=== PATIENT | male | born 1980 | race Caucasian/White ===

== ENCOUNTER 2018-10-10 08:13 | Emergency (ER) | payer OTHER ==
[2018-10-10] MEDS ORDERED: HYDROcodone/ACETAMIN 5-325 MG* 1 TAB PO ONE (08:32)
[2018-10-10 09:49] VITALS: BP 132/83
--- NOTE | 2018-10-10 10:54 | ED ---
Upper Extremity Pain - HPI Summary HPI Summary: Patient is a 38-year-old male who presents emergency department for left hand injury that occurred just prior to arrival. Patient states he jumped off of a tractor today when his left hand got caught and was twisted. No other injuries were sustained. Movement makes symptoms worse. Nothing makes symptoms better. Patient denies numbness or tingling. - History of Current Complaint Chief Complaint: EDExtremityUpper Stated Complaint: "LEFT HAND INJURY PER PT" Time Seen by Provider: 10/10/18 08:23 Hx Obtained From: Patient - Allergies/Home Medications Allergies/Adverse Reactions: Allergies Allergy/AdvReac Type Severity Reaction Status Date / Time No Known Allergies Allergy Verified 10/10/18 08:18 PMH/Surg Hx/FS Hx/Imm Hx Previously Healthy: Yes Endocrine/Hematology History: Denies: Hx Diabetes Cardiovascular History: Denies: Hx Hypertension, Hx Pacemaker/ICD Respiratory History: Reports: Hx Asthma - ALLERGY INDUCED History: Denies: Hx Renal Disease Sensory History: Denies: Hx Hearing Aid Psychiatric History: Denies: Hx Panic Disorder - Surgical History Surgery Procedure, Year, and Place: LEFT SHOULDER SURGERY (LABRUM) X 2;. BACK SURGERY FOR DISCS X2 (2009 & 2003); Infectious Disease History: No Infectious Disease History: Denies: Traveled Outside the [place] in Last 30 Days - Family History Known Family History: Positive: Non-Contributory Family History: FHx of Colon [place] - Social History Occupation: Employed Full-time Lives: With Family Alcohol Use: Occasionally Substance Use Type: Reports: None Smoking Status (MU): Former Smoker Review of Systems Positive: Other - left hand pain and swelling Neurological: Negative Negative: Weakness, Paresthesia, Numbness All Other Systems Reviewed And Are Negative: Yes Physical Exam Triage Information Reviewed: Yes Vital Signs On Initial Exam: Initial Vitals Temp Pulse Resp BP Pulse Ox 96.6 F 59 18 139/88 98 10/10/18 08:14 10/10/18 08:14 10/10/18 08:14 10/10/18 08:14 10/10/18 08:14 Vital Signs Reviewed: Yes Appearance: Positive: Pain Distress - Pt. sitting on bed hold left arm. Appears in pain but nontoxic. Mother present. Skin: Positive: Warm, Dry Head/Face: Positive: Normal Head/Face Inspection Eyes: Positive: Normal, EOMI Musculoskeletal: Positive: Other - Pain and swelling to left lateral hand. Good radial pulse. Pain with movement of digits. Diffuse wrist pain as well. Small superficial abrasion to 2nd digit, otherwise of breaks in skin to hand. Neurological: Positive: Normal, CN Intact II-III Psychiatric: Positive: Affect/Mood Appropriate Procedures - Splinting Left Upper Extremity Location: applied by myself Hand-Made Type: orthoglass Splint: ulnar Pre-Proc Neuro Vasc Exam: normal Post-Proc Neuro Vasc Exam: normal Diagnostics - Vital Signs Vital Signs Temp Pulse Resp BP Pulse Ox 10/10/18 09:47 97.5 F 56 18 132/83 96 10/10/18 08:14 96.6 F 59 18 139/88 98 - Laboratory Lab Statement: Any lab studies that have been ordered have been reviewed, and results considered in the medical decision making process. Course/Dx - Course Course Of Treatment: Patient presenting with isolated left hand injury. He was given some Lortab for pain. X-ray shows a nondisplaced fracture of the fourth metacarpal. Patient was placed in an ulnar gutter splint. We'll have him follow up with orthopedics on Friday. Small prescription for Lortab given, BMP reviewed and no red flags noted. Advised to ice and elevate intermittently. Return to the ER over the weekend for extreme pain, extremity swelling, numbness or tingling or discoloration. Patient understands and agrees with plan. - Diagnoses Differential Diagnosis/HQI/PQRI: Positive: Contusion, Fracture (Closed), Hematoma, Strain, Sprain Provider Diagnoses: Metacarpal bone fracture Discharge - Sign-Out/Discharge Documenting (check all that apply): Patient Departure Patient Received Moderate/Deep Sedation with Procedure: No - Discharge Plan Condition: Improved Disposition: HOME Prescriptions: Hydrocodone/Acetaminophen [Hydrocodone-Acetamin 5-325 mg] 1 each PO Q6H #12 tablet MDD 4 Patient Education Materials: Hand Fracture (ED) Referrals: Flavio Sena MD [Medical Doctor] - Additional Instructions: Call the orthopedic clinic Friday to schedule an appointment as soon as possible Keep splint in place Ice and elevate intermittently Pain medication as directed Return to ER for increased pain, tingling/numbness, skin discoloration or if concerned - Billing Disposition and Condition Condition: IMPROVED Disposition: Home
== END 2018-10-10 09:49 | disposition home or self-care (01) ==
LOC: ED 08:13
DX: S62.395A Other fracture of fourth metacarpal bone, left hand, initial encounter for closed fracture (principal); Y93.39 Activity, other involving climbing, rappelling and jumping off; Y92.9 Unspecified place or not applicable; Z87.891 Personal history of nicotine dependence
CPT/HCPCS: 99282

== ENCOUNTER 2019-01-04 09:57 | Inpatient (IN) | payer OTHER ==
--- NOTE | 2019-01-04 10:21 | ED ---
Back Pain - HPI Summary HPI Summary: This patient is a 38 year old M presenting to [facility] with a chief complaint of severe back pain since 2 days ago. Pt has hx of back surgeries. The patient rates the pain 10/10 in severity. Symptoms aggravated by movement. Symptoms alleviated by rest. Patient reports tingling and leg pain. Patient denies any fever, chills, erythema of eyes, sore throat, CP, SOB, cough, abdominal pain, N/ V, dysuria, hematuria, myalgia, edema, rash, or dizziness. - History of Current Complaint Chief Complaint: EDBackInjuryPain Stated Complaint: BACK INJURY PER PT Time Seen by Provider: 01/04/19 10:14 Hx Obtained From: Patient, Family/Mule Spinner - mother Onset/Duration: Sudden Onset, Lasting Days - 2, Still Present Onset/Duration: Started Days Ago - 2 Timing: Constant Severity Initially: Severe Severity Currently: Severe Pain Intensity: 10 Pain Scale Used: 0-10 Numeric Aggravating Symptom(s): Movement Alleviating Symptom(s): Rest Associated Signs And Symptoms: Positive: Tingling, Other - positive - back pain , leg pain. negative - any chills, erythema of eyes, sore throat, CP, SOB, cough , N/V, dysuria, hematuria, myalgia, edema, rash, or dizziness.. Negative: Fever, Abdominal Pain - Allergies/Home Medications Allergies/Adverse Reactions: Allergies Allergy/AdvReac Type Severity Reaction Status Date / Time No Known Allergies Allergy Verified 01/04/19 10:12 PMH/Surg Hx/FS Hx/Imm Hx Previously Healthy: No Endocrine/Hematology History: Denies: Hx Diabetes Cardiovascular History: Denies: Hx Hypertension, Hx Pacemaker/ICD Respiratory History: Reports: Hx Asthma - ALLERGY INDUCED History: Denies: Hx Renal Disease Sensory History: Denies: Hx Hearing Aid Psychiatric History: Denies: Hx Panic Disorder - Surgical History Surgical History: Yes Surgery Procedure, Year, and Place: LEFT SHOULDER SURGERY (LABRUM) X 2;. BACK SURGERY FOR DISCS X2 (2009 & 2003); Infectious Disease History: No Infectious Disease History: Denies: Traveled Outside the [place] in Last 30 Days - Family History Known Family History: Positive: Non-Contributory Family History: FHx of Colon [place] - Social History Alcohol Use: Occasionally Substance Use Type: Reports: None Smoking Status (MU): Former Smoker Review of Systems Negative: Fever, Chills Negative: Erythema Negative: Sore Throat Negative: Chest Pain Negative: Shortness Of Breath, Cough Negative: Abdominal Pain, Vomiting, Nausea Negative: dysuria, hematuria Musculoskeletal: Other - positive - back pain, tingling and leg pain Negative: Myalgia, Edema Negative: Rash Neurological: Other - negative - dizziness All Other Systems Reviewed And Are Negative: Yes Physical Exam - Summary Physical Exam Summary: Constitutional: Well-developed, Well-nourished, Alert. (-) Distressed. Uncomfortable. Skin: Warm, Dry HENT: Normocephalic; Atraumatic Eyes: Conjunctiva normal Neck: Musculoskeletal ROM normal neck. (-) JVD, (-) Stridor, (-) Tracheal deviation Cardio: Rhythm regular, rate normal, Heart sounds normal; Intact distal pulses; The pedal pulses are 2+ and symmetric. Radial pulses are 2+ and symmetric. (-) Murmur Pulmonary/Chest wall: Effort normal. (-) Respiratory distress, (-) Wheezes, (-) Rales Abd: Soft, (-) tenderness, (-) Distension, (-) Guarding, (-) Rebound Musculoskeletal: (-) Edema. Positive crossed left leg raise, keeps right leg with hip and knee flexed Lymph: (-) Cervical adenopathy Neuro: Alert, Oriented x3 Psych: Mood and affect Normal Triage Information Reviewed: Yes Vital Signs On Initial Exam: Initial Vitals Temp Pulse Resp BP Pulse Ox 97.9 F 78 20 148/80 99 01/04/19 09:58 01/04/19 09:58 01/04/19 09:58 01/04/19 09:58 01/04/19 09:58 Vital Signs Reviewed: Yes Procedures - Sedation Patient Received Moderate/Deep Sedation with Procedure: No Diagnostics - Vital Signs Vital Signs Temp Pulse Resp BP Pulse Ox 01/04/19 09:58 97.9 F 78 20 148/80 99 - Laboratory Result Diagrams: 01/04/19 17:08 01/04/19 17:08 Lab Statement: Any lab studies that have been ordered have been reviewed, and results considered in the medical decision making process. Back Pain Course/Dx - Course Course Of Treatment: This patient is a 38 year old M presenting to [facility] with a chief complaint of severe back pain since 2 days ago. Pt has hx of back surgeries. The patient rates the pain 10/10 in severity. Symptoms aggravated by movement. Symptoms alleviated by rest. Patient reports tingling and leg pain. Patient denies any fever, chills, erythema of eyes, sore throat, CP, SOB, cough , abdominal pain, N/V, dysuria, hematuria, myalgia, edema, rash, or dizziness. Physical exam shows pt appears uncomfortable, has positive crossed left leg raise, keeps right leg with hip and knee flexed. During ED course, pt was given Morphine, Naprosyn, Deltasone, Percocet. At 1520, Dr. Chan agrees to admit pt. Dx is sciatica. - Diagnoses Provider Diagnoses: Sciatica - Provider Notifications Discussed Care Of Patient With: Rachel Chan Time Discussed With Above Provider: 15:20 Instructed by Provider To: Other - Dr. Chan agrees to admit pt. Discharge ED - Sign-Out/Discharge Documenting (check all that apply): Patient Departure - admit - Discharge Plan Condition: Stable Disposition: ADMITTED TO [facility] - Billing Disposition and Condition Condition: STABLE Disposition: Admitted to [facility] - Attestation Statements Document Initiated by Scribe: Yes Documenting Scribe: Jann Ivy Provider For Whom Lannyibe is Documenting (Include Credential): Dr. Devan Arrieta MD Scribe Attestation: Jann Adams scribed for Dr. Devan Arrieta MD on 01/12/19 at 2205. Scribe Documentation Reviewed: Yes Provider Attestation: The documentation as recorded by the Jann sevilla accurately reflects the service I personally performed and the decisions made by me, Dr. Devan Arrieta MD Status of Scribe Document: Viewed
[2019-01-04] MEDS ORDERED: Morphine 10 MG/ML VIAL (1 ml) IM ONE (10:40)
[2019-01-04] MEDS ORDERED: predniSONE TAB* 20 MG PO ONE (11:21)
[2019-01-04] MEDS ORDERED: Naproxen TAB* 250 MG PO ONE (11:21)
[2019-01-04] MEDS ORDERED: oxyCODONE/Acetamin 5/325 MG* TAB PO ONE (13:06)
[2019-01-04] MEDS ORDERED: Morphine 4 MG/ML VIAL (1 ml) 4 MG/ML VIAL IV ONE (14:40)
[2019-01-04] MEDS ORDERED: Cyclobenzaprine TAB* 10 MG PO ONE (16:42)
[2019-01-04] MEDS ORDERED: HYDROmorphone INJ* 0.5 MG/0.5 ML SYRINGE IV ONE (16:51)
[2019-01-04 17:28] LABS: ABS Basophils 0.1 10^3/ul (0-0.2); ABS Lymphocytes 1.1 10^3/ul (1.0-4.8); ABS Monocytes 0.1 10^3/ul (0-0.8); ABS Neutrophils 8.3 10^3/ul (1.5-7.7); Eosinophil % 0.2 %; Hematocrit 47 % (42-52); Hemoglobin 15.7 g/dL (14.0-18.0); Lymphocyte % 11.1 %; Mean Corpuscular HGB Conc 34 g/dL (31-36); Mean Corpuscular Hemoglobin 31 pg (27-31); Mean Corpuscular Volume 90 fL (80-94); Mean Platelet Volume 8.9 fL (7.4-10.4); Nucleated Red Blood Cells % 0.1; Platelet Count 217 10^3/uL (150-450); Red Blood Count 5.17 10^6 /uL (4.18-5.48); Red Cell Distribution Width 13 % (10-15); White Blood Count 9.6 10^3/uL (3.5-10.8)
[2019-01-04 18:02] LABS: BUN/Creatinine Ratio 28.9 (8-20); C Reactive Protein 1.41 mg/L (<8.01); Calcium 9.6 mg/dL (8.6-10.3); EGFR African American 125.5 (>60); EGFR Non-African American 103.7 (>60); Potassium 4.3 mmol/L (3.5-5.0)
[2019-01-04] MEDS ORDERED: Iohexol 300* (CONTRAST) 10 ML SDV IV ONE (18:35)
[2019-01-04] MEDS ORDERED: Acetaminophen TAB* 325 MG PO PRN (18:40)
[2019-01-04] MEDS ORDERED: HYDROmorphone INJ1* 1 MG/ML SYRINGE IV PRN (18:43)
--- NOTE | 2019-01-04 20:39 | HP ---
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 Jolley.* (DICTATED BY CRISTIAN ROBLEDO NP) CHIEF COMPLAINT: Back pain radiating down the right leg. HISTORY OF PRESENT ILLNESS: This is a 38-year-old male with a past medical history that is significant for back surgery x2 due to herniated disks, who 2 days ago had went to swing his legs out of bed, felt a pop in his back and then developed severe back pain with radiating numbness and tingling down the right leg. Since then, he has been having difficulty with urination, having to force to have the urine come out, has not had a bowel movement since injury. He has difficulty walking or going up and down stairs without severe pain and needing assistance. Unable to lay in the same spot for more than a few minutes at a time without severe pain. Elevating right leg on pillows alleviates pain somewhat. Has tried ice and heat without relief from either. Here in the emergency room, the patient has received a total of 14 mg of morphine, 500 of naproxen, 2 Percocet, 60 mg of prednisone, 10 mg of cyclobenzaprine and 0.5 mg of IV Dilaudid. The patient is able to lift the right leg off the bed, but elicited pain to the lower back at a low angle to bed. Hospitalist asked to evaluate patient for admission. PAST MEDICAL HISTORY: Includes herniated disks in the lumbar area, broken back , pelvis and left hand fracture. PAST SURGICAL HISTORY: Includes 2 left shoulder surgeries, unspecified, the patient is unable to say what type of surgery. The patient also has had 2 back surgeries, unable to state specific type of surgery. MEDICATIONS: He is on no home medications. ALLERGIES: No known drug allergies. FAMILY HISTORY: Positive for colon cancer. SOCIAL HISTORY: He quit 15 years ago, though he used to be a half a pack a day smoker. Drinks occasionally a couple of times a year. Smokes marijuana every day. 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 REVIEW OF SYSTEMS: No fevers or anorexia. No chest pain or edema, cough, nausea, vomiting, or abdominal pain. No diarrhea. No hematuria. Difficulty voiding, has to strain to pass the urine. No bowel movement since injury. Reports tingling and "nerve pain" that is ranging from the right middle buttock radiating around to the lateral right thigh with decreased sensation through to his toes. Weakness to the right lower extremity. No rashes or lesions. Denies any anxiety or depression. PHYSICAL EXAMINATION CONSTITUTIONAL: This is a well-developed, well-groomed gentleman seen lying in bed, in mild distress. VITAL SIGNS: Temp is 97.9 Fahrenheit, blood pressure is 126/66, 52 pulse, 12 respirations, 93% oxygen on room air. HEENT: Eyes: Conjunctivae pink and moist. Pupils are equal, round, reactive and accommodating to light. Extraocular muscles intact. ENT: Oropharynx clear. Mucous membranes moist. LYMPHATICS: No cervical lymphadenopathy noted. RESPIRATORY: Lung sounds are clear throughout bilaterally on room air. No accessory muscle use noted. CARDIAC: S1, S2 heard. Heart rate regular. No murmurs, gallops, or rubs appreciated. ABDOMEN: Soft, nontender, nondistended, positive bowel sounds x4. MUSCULOSKELETAL: Right lower extremity cooler than the left. Cap refill less than 3 seconds. Able to dorsi, plantarflex and move all toes. NEURO: 4/5 strength to the right lower extremity. No other focal deficits appreciated. PSYCH: Alert and oriented x4. Thought content organized. SKIN: No open areas appreciated. DIAGNOSTIC STUDIES/LAB DATA: No laboratory data resulted for this admission. Imaging includes CT scan of spine which has not been performed as of yet. ASSESSMENT AND PLAN: My impression is that this is a 38-year-old male with a past medical history significant for 2 back surgeries, who was being admitted for intractable back pain today, possible radiculopathy, rule out cauda equina. 1. Intractable back pain. CT of the lumbar spine with contrast showed small herniation of L3-4 and a larger herniation of L5-S1 with possible impingement of S1 nerve root. Consult placed to Dr. Manjarrez. Cyclobenzaprine, naproxen, percocet and dilaudid as needed for pain. 2. DVT prophylaxis. SCDs. 3. Code status is full. DISPOSITION: Admit OBV to 4N. CONDITION: Guarded. Plan has been reviewed, was approved by my attending. TIME SPENT: Time spent on the patient is about 50 minutes, more than half of that spent face to face. CRISTIAN ROBLEDO, ELECTRONIC DEVELOPMENT TECHNICIAN [id number]/[facility] #: [id number] [facility]
[2019-01-04] MEDS: HYDROmorphone INJ1* 1 MG/ML SYRINGE IV PRN (21:06)
[2019-01-04] MEDS: oxyCODONE/Acetamin 5/325 MG* TAB PO PRN (21:43)
[2019-01-04] MEDS: Docusate CAP* 100 MG PO SCH (21:44)
[2019-01-04] MEDS: Senna TAB 8.6 mg* TAB PO SCH (21:44)
[2019-01-04] MEDS ORDERED: Naproxen TAB* 250 MG PO PRN (23:00)
[2019-01-05] MEDS: HYDROmorphone INJ1* 1 MG/ML SYRINGE IV PRN ×8 (00:08→21:07)
[2019-01-05] MEDS: Senna TAB 8.6 mg* TAB PO SCH ×2 (09:06→19:57)
[2019-01-05] MEDS: Docusate CAP* 100 MG PO SCH ×2 (09:06→19:57)
[2019-01-05] MEDS: predniSONE TAB* 20 MG PO SCH (09:06)
[2019-01-05] MEDS: Cyclobenzaprine TAB* 10 MG PO PRN ×3 (09:53→21:28)
[2019-01-05] MEDS ORDERED: LORazepam TAB(*) 1 MG PO ONE (11:25)
[2019-01-05] MEDS ORDERED: Ketorolac INJ* 30 MG/ML 1 ML VIAL IV PUSH ONE (12:22)
[2019-01-05] MEDS ORDERED: Ketorolac INJ* 30 MG/ML 1 ML VIAL ONE (12:25)
[2019-01-05] MEDS: Pantoprazole TAB * 40 MG TAB PO SCH (15:03)
[2019-01-05] MEDS ORDERED: LORazepam INJ* 2 MG/ML 1 ML VIAL IV PUSH ONE ×3 (15:29→21:34)
[2019-01-05] MEDS ORDERED: Lorazepam PYXIS KEY PRN ×3 (15:29→21:34)
[2019-01-05] MEDS ORDERED: Lorazepam PYXIS KEY ONE ×2 (16:38→21:35)
--- NOTE | 2019-01-05 17:04 | CONS ---
CONSULTATION NOTE: DATE OF CONSULT: 01/05/19 HISTORY OF PRESENT ILLNESS: The patient is a very pleasant 38-year-old gentleman, who was admitted to the hospital yesterday with complaints of severe back pain radiating to the right lower extremity. The patient has history of 2 back surgeries, one was in 2011 in [place] for a similar problem, at that time the etiology was a herniated disk as the patient reports, and he had another one a few years ago in [place], but the patient does not recall the details of the surgery. 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 Two days ago, he was trying to get out of the bed and he kicked his legs out of the bed. He felt an abrupt onset of back pain radiating to the right lower extremity. Since then, he has been having significant difficulties with ability to ambulate with severe back pain and the patient reports that he has weakness on the right lower extremity with numbness and tingling of the right lower extremity all the way down to his foot. He has difficulty with the ability to ambulate and he cannot bear weight on that leg. The pain is aggravated with him moving, sneezing, coughing, or extending his legs. The patient denies any urinary or GI incontinence. His perianal sensation is intact. He reports though that he has some chronic difficulty urinating as he feels a lot of pain and he used to stress a lot to go to the bathroom. 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 He is , lives with his and they have 2 children. The patient is accompanied by his . PAST MEDICAL HISTORY: The patient denies any significant medical problems other than his chronic back pain. PAST SURGICAL HISTORY: The patient has history of several traumas with left shoulder surgery, 2 back surgeries. HOME MEDICATIONS: The patient is not taking any home medications. ALLERGIES: No known drug allergies. FAMILY HISTORY: Noncontributory. SOCIAL HISTORY: Tobacco, negative. Alcohol, occasional. Recreational drug use , positive for marijuana. PHYSICAL EXAM: The patient is in quite significant amount of pain. He had difficulty moving from side to side in the bed and he lays with his legs somewhat flexed with a pillow underneath. His previous wound is soft, clean, and dry, healed very well. He has no tenderness to palpation of the cervical, thoracic, or lumbar spine. He has free range of motion of the cervical spine, although he does have some pain with extension. The patient is awake, alert, oriented x3. His pupils are equal and reactive. Cranial nerves II through XII are grossly intact. Motor 4-5/5 in all extremities with exception of the right lower extremity which is 4-/5 with right foot dorsiflexion and EHL slightly weaker and foot plantarflexion 3 to 4-/5. Sensory grossly intact to light touch except decreased sensation in the right L5 and S1 distribution. Deep tendon reflexes +1 bilaterally with trace in the right Achilles. The patient has no clonus. No Babinski's. Hoang's negative. The patient has positive straight leg raising test of 30 degrees on the left and 10 degrees on the right. DIAGNOSTIC STUDIES: The patient had a CT scan of the lumbar spine revealing L5- S1 likely disk herniation with left L5 pars defect and laminar defect, which seems to be chronic. ASSESSMENT: The patient is a very pleasant 38-year-old gentleman with complaints of back pain radiating to the right lower extremity, history of [address] scan findings consistent with possible right L5-S1 disk herniation. PLAN: At this point, patient has significant difficulties with his daily activities and he is confined in bed. We offered the patient the option of performing a rectal exam, but the patient refused. He understands the consequences of his decision. We discussed about CT scan findings. The patient is scheduled for MRI of his lumbar spine. If the MRI confirms the presence of large disk herniation at L5-S1, the patient may be a candidate for surgical intervention in the form of diskectomy and disk space exploration at that level. We discussed about risks and benefits of the procedure, expectations, limitations and possible complications of the procedure with complications including, but not limited to bleeding, infection, risk of injury to adjacent structures, coma, paralysis, , need for additional procedures, anesthesia risks, stroke, blindness, cancer, instability, spinal fluid leak, postoperative hematoma formation, DVT, pulmonary embolism. The patient understands and would like to consider surgical intervention if the MRI confirms the presence of an operative lesion. The same was discussed with the patient's , who was at the bedside. Thank you for allowing us to participate in the care of this patient. Please do not hesitate to contact our office in case you have any further questions or concerns regarding the care of this patient. [id number]/[facility] #: [id number] JOSUE
[2019-01-05] MEDS: Ketorolac INJ* 15 MG/ML 1 ML VIAL IV PUSH PRN (19:58)
[2019-01-05] MEDS: oxyCODONE/Acetamin 5/325 MG* TAB PO PRN (19:58)
--- NOTE | 2019-01-05 20:41 | PN ---
Subjective Date of Service: 01/05/19 Interval History: patient continues to c/o lower back pain radiating down right leg. Denies fever or chills, Denies n/v/d. Denies chest pain or shortness of breath. Patient was unable to tolerate MRI this evening and MRI table was down. Will go for MRI in the AM. Family History: Unchanged from Admission Social History: Unchanged from Admission Past Medical History: Unchanged from Admission Objective Active Medications: Acetaminophen (Tylenol Tab*) 650 mg PO Q4H PRN PRN Reason: MILD PAIN or TEMP > 100.4 Cyclobenzaprine HCl (Flexeril Tab*) 10 mg PO TID PRN PRN Reason: SPASMS Last Admin: 01/05/19 15:03 Dose: 10 mg Docusate Sodium (Colace Cap*) 100 mg PO BID [facility] Last Admin: 01/05/19 19:57 Dose: 100 mg Hydromorphone HCl (Dilaudid Inj1s*) 2 mg IV Q3H PRN PRN Reason: PAIN - SEVERE Last Admin: 01/05/19 18:08 Dose: 2 mg Ketorolac Tromethamine (Toradol Inj*) 15 mg IV PUSH Q6H PRN PRN Reason: PAIN - SEVERE Stop: 01/06/19 18:29 Last Admin: 01/05/19 19:58 Dose: 15 mg Miscellaneous (Ativan Pyxis Ramos) 1 ea N/A .ATIVAN IV RAMOS PRN PRN Reason: PYXIS RAMOS Ondansetron HCl (Zofran Inj*) 4 mg IV Q4H PRN PRN Reason: NAUSEA/VOMITING Oxycodone/Acetaminophen (Percocet 5/325 Tab*) 1 tab PO Q4H PRN PRN Reason: PAIN - MODERATE Last Admin: 01/05/19 19:58 Dose: 1 tab Pantoprazole Sodium (Protonix Tab*) 40 mg PO DAILY [facility] Last Admin: 01/05/19 15:03 Dose: 40 mg Prednisone (Deltasone Tab*) 40 mg PO DAILY [facility] Stop: 01/10/19 08:59 Last Admin: 01/05/19 09:06 Dose: 40 mg Senna (Senokot 8.6 Mg Tab*) 1 tab PO BID [facility] Last Admin: 01/05/19 19:57 Dose: 1 tab Vital Signs - 8 hr 01/05/19 01/05/19 01/05/19 14:11 15:03 15:04 Temperature Pulse Rate Respiratory 20 20 20 Rate Blood Pressure (mmHg) O2 Sat by Pulse Oximetry 01/05/19 01/05/19 01/05/19 15:15 15:23 16:43 Temperature 97.5 F Pulse Rate 64 Respiratory 18 20 20 Rate Blood Pressure 145/85 (mmHg) O2 Sat by Pulse 98 Oximetry 01/05/19 01/05/19 01/05/19 16:44 17:23 17:24 Temperature Pulse Rate Respiratory 20 20 20 Rate Blood Pressure (mmHg) O2 Sat by Pulse Oximetry 01/05/19 01/05/19 01/05/19 18:08 18:23 19:57 Temperature Pulse Rate Respiratory 22 18 16 Rate Blood Pressure (mmHg) O2 Sat by Pulse Oximetry 01/05/19 19:58 Temperature Pulse Rate Respiratory 18 Rate Blood Pressure (mmHg) O2 Sat by Pulse Oximetry Oxygen Devices in Use Now: None Appearance: appears mildly uncomfortable resting in bed, no acute distress Ears/Nose/Mouth/Throat: NL Teeth, Lips, Gums, Clear Oropharnyx, Mucous Membranes Moist Neck: NL Appearance and Movements; NL JVP, Trachea Midline Respiratory: Symmetrical Chest Expansion and Respiratory Effort, Clear to Auscultation Cardiovascular: NL Sounds; No Murmurs; No JVD, No Edema Abdominal: NL Sounds; No Tenderness; No Distention Extremities: No Edema, No Clubbing, Cyanosis Skin: No Rash or Ulcers Neurological: Alert and Oriented x 3 Nutrition: Taking PO's Result Diagrams: 01/04/19 17:08 01/04/19 17:08 Assess/Plan/Problems-Billing Assessment: Mr. Dhaliwal is a 38 y.o male with a hx of chronic back pain, history of 2 back surgeries who presented to the ER with severe lower back pain radiating to right leg. - Patient Problems (1) Back pain Current Visit: Yes Status: Acute Code(s): M54.9 - DORSALGIA, UNSPECIFIED SNOMED Code(s): 685978787 Comment: Unable to complete MRI this evening - will do MRI in the AM - patient will need pre-medication prior to the procedure - Will contine pain medications dilaudid, percocet, flexeril as needed for pain - consult to Neurosurgery - recommendation pending MRI (2) DVT prophylaxis Current Visit: Yes Status: Acute Code(s): Z29.9 - ENCOUNTER FOR PROPHYLACTIC MEASURES, UNSPECIFIED SNOMED Code(s): 449667008 (3) Full code status Current Visit: Yes Status: Acute Code(s): Z78.9 - OTHER SPECIFIED HEALTH STATUS SNOMED Code(s): 895435972 Comment: scd's Status and Disposition: inpatient
[2019-01-05] MEDS: Ondansetron INJ* 2 MG/ML VIAL IV PRN (22:43)
[2019-01-06] MEDS: Cyclobenzaprine TAB* 10 MG PO PRN ×2 (10:37→19:48)
[2019-01-06] MEDS: HYDROmorphone INJ1* 1 MG/ML SYRINGE IV PRN ×4 (10:37→22:13)
--- NOTE | 2019-01-06 10:40 | PN ---
Subjective Date of Service: 01/06/19 Interval History: Reports that he was able to sleep well last night. Denies chest pain or shortness of breath. Denies fever or chills. Reports continued numbness and tingling to right leg and lower back pain. MRI was completed Family History: Unchanged from Admission Social History: Unchanged from Admission Past Medical History: Unchanged from Admission Objective Active Medications: Acetaminophen (Tylenol Tab*) 650 mg PO Q4H PRN PRN Reason: MILD PAIN or TEMP > 100.4 Cyclobenzaprine HCl (Flexeril Tab*) 10 mg PO TID PRN PRN Reason: SPASMS Last Admin: 01/05/19 21:28 Dose: 10 mg Docusate Sodium (Colace Cap*) 100 mg PO BID [facility] Last Admin: 01/05/19 19:57 Dose: 100 mg Hydromorphone HCl (Dilaudid Inj1s*) 2 mg IV Q3H PRN PRN Reason: PAIN - SEVERE Last Admin: 01/05/19 21:07 Dose: 2 mg Ketorolac Tromethamine (Toradol Inj*) 15 mg IV PUSH Q6H PRN PRN Reason: PAIN - SEVERE Stop: 01/06/19 18:29 Last Admin: 01/05/19 19:58 Dose: 15 mg Miscellaneous (Ativan Pyxis Ramos) 1 ea N/A .ATIVAN IV RAMOS PRN PRN Reason: PYXIS RAMOS Ondansetron HCl (Zofran Inj*) 4 mg IV Q4H PRN PRN Reason: NAUSEA/VOMITING Last Admin: 01/05/19 22:43 Dose: 4 mg Oxycodone/Acetaminophen (Percocet 5/325 Tab*) 1 tab PO Q4H PRN PRN Reason: PAIN - MODERATE Last Admin: 01/05/19 19:58 Dose: 1 tab Pantoprazole Sodium (Protonix Tab*) 40 mg PO DAILY [facility] Last Admin: 01/05/19 15:03 Dose: 40 mg Prednisone (Deltasone Tab*) 40 mg PO DAILY [facility] Stop: 01/10/19 08:59 Last Admin: 01/05/19 09:06 Dose: 40 mg Senna (Senokot 8.6 Mg Tab*) 1 tab PO BID [facility] Last Admin: 01/05/19 19:57 Dose: 1 tab Vital Signs - 8 hr 01/06/19 01/06/19 03:43 07:34 Temperature 97.0 F 96.8 F Pulse Rate 60 61 Respiratory 23 16 Rate Blood Pressure 135/81 148/81 (mmHg) O2 Sat by Pulse 100 100 Oximetry Oxygen Devices in Use Now: None Appearance: appears comfortable resting in bed Eyes: No Scleral Icterus Ears/Nose/Mouth/Throat: Mucous Membranes Moist Neck: NL Appearance and Movements; NL JVP, Trachea Midline Respiratory: Symmetrical Chest Expansion and Respiratory Effort, Clear to Auscultation Cardiovascular: NL Sounds; No Murmurs; No JVD, No Edema Abdominal: NL Sounds; No Tenderness; No Distention Extremities: No Edema, No Clubbing, Cyanosis Skin: No Rash or Ulcers Neurological: Alert and Oriented x 3 Nutrition: Taking PO's Result Diagrams: 01/04/19 17:08 01/04/19 17:08 Assess/Plan/Problems-Billing Assessment: Mr. Dhaliwal is a 38 y.o male with a hx of chronic back pain, history of 2 back surgeries who presented to the ER with severe lower back pain radiating to right leg. - Patient Problems (1) Back pain Current Visit: Yes Status: Acute Code(s): M54.9 - DORSALGIA, UNSPECIFIED SNOMED Code(s): 288895718 Comment: - MRI completed- Disc bulge at L5-S1 with superimposed large right subarticular protrusion causing mild central canal stenosis, severe right lateral recess stenosis and moderate left lateral recess stenosis. There is mass effect upon the right greater than left traversing S1 nerve roots. - Will continue pain medications dilaudid, percocet, flexeril as needed for pain - consult to Neurosurgery - further recommendations pending (2) DVT prophylaxis Current Visit: Yes Status: Acute Code(s): Z29.9 - ENCOUNTER FOR PROPHYLACTIC MEASURES, UNSPECIFIED SNOMED Code(s): 490514303 Comment: SCD's (3) Full code status Current Visit: Yes Status: Acute Code(s): Z78.9 - OTHER SPECIFIED HEALTH STATUS SNOMED Code(s): 827249052 Status and Disposition: inpatient- pending surgery
[2019-01-06] MEDS: Docusate CAP* 100 MG PO SCH ×2 (10:47→19:49)
[2019-01-06] MEDS: predniSONE TAB* 20 MG PO SCH (10:47)
[2019-01-06] MEDS: Pantoprazole TAB * 40 MG TAB PO SCH (10:47)
[2019-01-06] MEDS: Senna TAB 8.6 mg* TAB PO SCH ×2 (10:48→19:48)
[2019-01-06] MEDS: Ketorolac INJ* 15 MG/ML 1 ML VIAL IV PUSH PRN (14:16)
--- NOTE | 2019-01-06 17:15 | PN ---
Progress Note - Progress Note Date of Service: 01/06/19 Note: Reviewed MRI today, there is right side disc herniation at L5/S1 pressing the right S! nerve root, which corresponds with patient complaint of right lower extremity radicular pain. I have discussed finding with Dr. Haji, who feels patient will possible need surgical intervention. Presently considering possible having patient follow after first case tomorrow or possible Friday.
[2019-01-06] MEDS: oxyCODONE/Acetamin 5/325 MG* TAB PO PRN (19:46)
[2019-01-06] MEDS ORDERED: LORazepam TAB(*) 0.5 MG PO PRN (21:17)
--- NOTE | 2019-01-06 21:21 | PN ---
Progress Note - Progress Note Date of Service: 01/06/19 Note: Patient seen and examined. Slightly more comfortable. Still not able to ambulate. MRI revealed large Rt L5-S1 HNP Neuro exam stable Discussed in extend with patient and his mother regarding imaging findings. At this point, I think that surgical intervention may be beneficial to the patient. We discussed in extend regarding treatment options, expectations, limitations and possible complications of the procedure. Patient would like to proceed with surgical intervention. We agreed to start with the least invasive intervention of a Right L5-S1 discectomy with the understanding that the patient may need additional procedures in the future. Will keep patient NPO after midnight, order preop labs. Possible surgery tomorrow or Friday, provided that he is medically cleared for surgery. Appreciate IM care. Cleveland Haji MD
[2019-01-06] MEDS ORDERED: Polyethylene Glycol 3350* 17 GM PACKET PO PRN (21:49)
[2019-01-07] MEDS: HYDROmorphone INJ1* 1 MG/ML SYRINGE IV PRN ×5 (06:30→21:41)
[2019-01-07 06:44] LABS: Activated Partial Thrombo Time 34.5 seconds (26.0-38.0); INR 1.06 (0.82-1.09)
[2019-01-07] MEDS ORDERED: NS 0.9% 1000 ML** 1,000 ML IV SCH (09:00)
[2019-01-07] MEDS: Docusate CAP* 100 MG PO SCH ×2 (09:49→21:41)
[2019-01-07] MEDS: Senna TAB 8.6 mg* TAB PO SCH ×2 (09:49→21:41)
[2019-01-07] MEDS: predniSONE TAB* 20 MG PO SCH (09:49)
[2019-01-07] MEDS: Pantoprazole TAB * 40 MG TAB PO SCH (09:49)
--- NOTE | 2019-01-07 11:01 | PN ---
Subjective Date of Service: 01/07/19 Interval History: reports that he was able to sleep well last night. Denies chest pain or shortness of breath. Denies abd pain ,n/v/d. Denies fever or chills. continues to c/o lower back pain with numbness and tingling to the right leg. Patient was seen by neurosurgery and plan is to proceed with surgery possibly this afternoon or tomorrow Patient report that he is able to carry daily activities without chest pain or shortness of breath. Reports he is able to climb a flight to stairs without chest pain. He has no past medical history and no medication. RCRI score is 0. At this time he is acceptable candidate for surgery without any further workup. Family History: Unchanged from Admission Social History: Unchanged from Admission Past Medical History: Unchanged from Admission Objective Active Medications: Acetaminophen (Tylenol Tab*) 650 mg PO Q4H PRN PRN Reason: MILD PAIN or TEMP > 100.4 Cyclobenzaprine HCl (Flexeril Tab*) 10 mg PO TID PRN PRN Reason: SPASMS Last Admin: 01/06/19 19:48 Dose: 10 mg Docusate Sodium (Colace Cap*) 100 mg PO BID [facility] Last Admin: 01/07/19 09:49 Dose: Not Given Hydromorphone HCl (Dilaudid Inj1s*) 2 mg IV Q3H PRN PRN Reason: PAIN - SEVERE Last Admin: 01/07/19 10:23 Dose: 2 mg Sodium Chloride (Ns 0.9% 1000 Ml) 1,000 mls @ 100 mls/hr IV PER RATE [facility] Lorazepam (Ativan Tab(*)) 0.5 mg PO ONCE PRN PRN Reason: ANXIETY Stop: 01/07/19 21:16 Last Admin: 01/06/19 22:12 Dose: 0.5 mg Miscellaneous (Ativan Pyxis Ramos) 1 ea N/A .ATIVAN IV RAMOS PRN PRN Reason: PYXIS RAMOS Ondansetron HCl (Zofran Inj*) 4 mg IV Q4H PRN PRN Reason: NAUSEA/VOMITING Last Admin: 01/05/19 22:43 Dose: 4 mg Oxycodone/Acetaminophen (Percocet 5/325 Tab*) 1 tab PO Q4H PRN PRN Reason: PAIN - MODERATE Last Admin: 01/06/19 19:46 Dose: 1 tab Pantoprazole Sodium (Protonix Tab*) 40 mg PO DAILY [facility] Last Admin: 01/07/19 09:49 Dose: Not Given Polyethylene Glycol/Electrolytes (Miralax*) 17 gm PO DAILY PRN PRN Reason: CONSTIPATION Last Admin: 01/06/19 22:11 Dose: 17 gm Prednisone (Deltasone Tab*) 40 mg PO DAILY [facility] Stop: 01/10/19 08:59 Last Admin: 01/07/19 09:49 Dose: Not Given Senna (Senokot 8.6 Mg Tab*) 1 tab PO BID [facility] Last Admin: 01/07/19 09:49 Dose: Not Given Vital Signs - 8 hr 01/07/19 01/07/19 01/07/19 03:16 06:30 07:15 Temperature 96.9 F 97.0 F Pulse Rate 66 50 Respiratory 20 20 18 Rate Blood Pressure 135/81 149/83 (mmHg) O2 Sat by Pulse 94 99 Oximetry 01/07/19 10:23 Temperature Pulse Rate Respiratory 18 Rate Blood Pressure (mmHg) O2 Sat by Pulse Oximetry Oxygen Devices in Use Now: None Appearance: alert resting in bed , no acute distress Eyes: No Scleral Icterus Ears/Nose/Mouth/Throat: Clear Oropharnyx, Mucous Membranes Moist Neck: NL Appearance and Movements; NL JVP, Trachea Midline Respiratory: Symmetrical Chest Expansion and Respiratory Effort, Clear to Auscultation Cardiovascular: NL Sounds; No Murmurs; No JVD, No Edema Abdominal: NL Sounds; No Tenderness; No Distention Extremities: No Edema, No Clubbing, Cyanosis Skin: No Rash or Ulcers Neurological: Alert and Oriented x 3 Nutrition: Taking PO's Result Diagrams: 01/04/19 17:08 01/04/19 17:08 Assess/Plan/Problems-Billing Assessment: Mr. Dhaliwal is a 38 y.o male with a hx of chronic back pain, history of 2 back surgeries who presented to the ER with severe lower back pain radiating to right leg. - Patient Problems (1) Back pain Current Visit: Yes Status: Acute Code(s): M54.9 - DORSALGIA, UNSPECIFIED SNOMED Code(s): 925021121 Comment: - MRI completed- Disc bulge at L5-S1 with superimposed large right subarticular protrusion causing mild central canal stenosis, severe right lateral recess stenosis and moderate left lateral recess stenosis. There is mass effect upon the right greater than left traversing S1 nerve roots. - Will continue pain medications dilaudid, percocet, flexeril as needed for pain - consult to Neurosurgery - surgery this afternoon or tomorrow (2) DVT prophylaxis Current Visit: Yes Status: Acute Code(s): Z29.9 - ENCOUNTER FOR PROPHYLACTIC MEASURES, UNSPECIFIED SNOMED Code(s): 365138135 Comment: SCD's (3) Full code status Current Visit: Yes Status: Acute Code(s): Z78.9 - OTHER SPECIFIED HEALTH STATUS SNOMED Code(s): 220036177 Status and Disposition: inpatient- pending surgery
[2019-01-07] MEDS: Cyclobenzaprine TAB* 10 MG PO PRN (13:57)
[2019-01-07] MEDS: oxyCODONE/Acetamin 5/325 MG* TAB PO PRN (14:00)
--- NOTE | 2019-01-07 17:38 | PN ---
Progress Note - Progress Note Date of Service: 01/07/19 Note: Patient was seen this morning, also the evening by Dr. Haji, his surgery was has been rescheduled for tomorrow at noon. At this time will recommend continued pain control and patient should be NPO after midnight.
[2019-01-08] MEDS: Cyclobenzaprine TAB* 10 MG PO PRN ×2 (03:08→20:01)
[2019-01-08] MEDS: HYDROmorphone INJ1* 1 MG/ML SYRINGE IV PRN ×5 (03:08→22:33)
--- NOTE | 2019-01-08 07:54 | PN ---
Subjective Date of Service: 01/08/19 Interval History: Pain well controlled with IV hydromorphone. No new c/o. Family History: Unchanged from Admission Social History: Unchanged from Admission Past Medical History: Unchanged from Admission Objective Active Medications: Acetaminophen (Tylenol Tab*) 650 mg PO Q4H PRN PRN Reason: MILD PAIN or TEMP > 100.4 Cyclobenzaprine HCl (Flexeril Tab*) 10 mg PO TID PRN PRN Reason: SPASMS Last Admin: 01/08/19 03:08 Dose: 10 mg Docusate Sodium (Colace Cap*) 100 mg PO BID [facility] Last Admin: 01/07/19 21:41 Dose: 100 mg Hydromorphone HCl (Dilaudid Inj1s*) 2 mg IV Q3H PRN PRN Reason: PAIN - SEVERE Last Admin: 01/08/19 06:18 Dose: 2 mg Miscellaneous (Ativan Pyxis Ramos) 1 ea N/A .ATIVAN IV RAMOS PRN PRN Reason: PYXIS RAMOS Ondansetron HCl (Zofran Inj*) 4 mg IV Q4H PRN PRN Reason: NAUSEA/VOMITING Last Admin: 01/05/19 22:43 Dose: 4 mg Oxycodone/Acetaminophen (Percocet 5/325 Tab*) 1 tab PO Q4H PRN PRN Reason: PAIN - MODERATE Last Admin: 01/07/19 14:00 Dose: 1 tab Pantoprazole Sodium (Protonix Tab*) 40 mg PO DAILY [facility] Last Admin: 01/07/19 09:49 Dose: Not Given Polyethylene Glycol/Electrolytes (Miralax*) 17 gm PO DAILY PRN PRN Reason: CONSTIPATION Last Admin: 01/06/19 22:11 Dose: 17 gm Prednisone (Deltasone Tab*) 40 mg PO DAILY [facility] Stop: 01/10/19 08:59 Last Admin: 01/07/19 09:49 Dose: Not Given Senna (Senokot 8.6 Mg Tab*) 1 tab PO BID [facility] Last Admin: 01/07/19 21:41 Dose: 1 tab Vital Signs - 8 hr 01/08/19 01/08/19 01/08/19 03:08 03:29 04:00 Temperature 97.4 F Pulse Rate 59 Respiratory 18 18 18 Rate Blood Pressure 158/91 (mmHg) O2 Sat by Pulse 96 Oximetry 01/08/19 01/08/19 05:08 06:18 Temperature Pulse Rate Respiratory 16 18 Rate Blood Pressure (mmHg) O2 Sat by Pulse Oximetry Oxygen Devices in Use Now: None Appearance: Alert, supine in bed. In good spirits. Looks comfortable at rest. Eyes: No Scleral Icterus Neck: NL Appearance and Movements; NL JVP, No Thyroid Enlargement, Masses Respiratory: Symmetrical Chest Expansion and Respiratory Effort, Clear to Auscultation, Clear to Percussion Extremities: No Edema, No Clubbing, Cyanosis, - Skin: No Rash or Ulcers, No Nodules or Sclerosis, - Neurological: Alert and Oriented x 3 - Pain with R foot dorsiflexion, does not give full effort, - - Pain with R foot dorsiflexion, ? does not give full effort Result Diagrams: 01/04/19 17:08 01/04/19 17:08 Assess/Plan/Problems-Billing Assessment: Mr. Dhaliwal is a 38 y.o male with a hx of chronic back pain, history of 2 back surgeries who presented to the ER with severe lower back pain radiating to right leg. - Patient Problems (1) Herniated nucleus pulposus Current Visit: Yes Status: Acute Code(s): DJX8517 - SNOMED Code(s): 20154255 Comment: L5-S1. Surgery planned for 01/08 noon. ? stop prednisone. Good pain control. Not clear if has R foot drop or motion limited by pain. Status and Disposition: inpatient- pending surgery
[2019-01-08] MEDS: Docusate CAP* 100 MG PO SCH ×2 (09:28→20:01)
[2019-01-08] MEDS: Senna TAB 8.6 mg* TAB PO SCH ×2 (09:28→20:01)
[2019-01-08] MEDS: Pantoprazole TAB * 40 MG TAB PO SCH (09:28)
[2019-01-08] MEDS ORDERED: Midazolam* 1 MG/ML 2 ML VIAL (2 MG) ONE (12:41)
[2019-01-08] MEDS ORDERED: fentaNYL* 50 MCG/ML 2 ML VIAL (100 MCG VIAL) ONE ×4 (12:41→17:31)
[2019-01-08] MEDS ORDERED: Propofol* 10 MG/ML 20 ML BTL ONE (12:42)
[2019-01-08] MEDS ORDERED: Dexamethasone IV* 4 MG/ML 1 ML (4 MG) ONE ×2 (12:42→12:58)
[2019-01-08] MEDS ORDERED: Bupivacaine 0.25% W/EPI* 10 ML SDV ONE (12:43)
[2019-01-08] MEDS ORDERED: Bacitracin INJECTION* 50,000 UNITS ONE (12:43)
[2019-01-08] MEDS ORDERED: Famotidine IV* 10 MG/ML 2 ML (20 mg) IV ONE (12:50)
[2019-01-08] MEDS ORDERED: Dexamethasone IV* 4 MG/ML 1 ML (4 MG) IV SLOW PU ONE (12:50)
[2019-01-08] MEDS ORDERED: Buffered Lidocaine 1% SYRIN* 1 ML/SYRINGE INTRADERM ONE (12:50)
[2019-01-08] MEDS ORDERED: DiMENhydriNATE IV* 50 MG/ML VIAL IV PUSH PRN (12:54)
[2019-01-08] MEDS ORDERED: Naloxone* 0.4 MG/ML 1 ML VIAL IV PRN (12:54)
[2019-01-08] MEDS ORDERED: Famotidine IV* 10 MG/ML 2 ML (20 mg) ONE (12:58)
[2019-01-08] MEDS ORDERED: Lactated Ringers 1000 ML Bag* 1,000 ML IV SCH (13:00)
[2019-01-08] MEDS ORDERED: Ondansetron INJ* 2 MG/ML VIAL ONE (13:02)
[2019-01-08] MEDS ORDERED: KETAMINE HCL* 50 MG/ML 10 ML VIAL ONE (13:04)
[2019-01-08] MEDS ORDERED: ceFAZolin 2 GM PREMIX in ORs 2 GM/50 ML BAG ONE (13:10)
[2019-01-08] MEDS ORDERED: Phenylephrine 40 MCG/ML SYRINGE ONE (14:10)
[2019-01-08] MEDS ORDERED: Rocuronium* 10 MG/ML VIAL ONE (14:24)
[2019-01-08] MEDS ORDERED: Glycopyrrolate IV* 0.2 MG/ML 1 ML VIAL ONE (14:54)
[2019-01-08] MEDS ORDERED: Neostigmine Methylsulfate* 3 MG/3 ML SYRINGE ONE (14:54)
[2019-01-08] MEDS ORDERED: Labetalol IV* 5 MG/ML 20 ML VIAL ONE (15:55)
[2019-01-08] MEDS ORDERED: oxyCODONE/Acetamin 5/325 MG* TAB PO PRN (16:37)
[2019-01-08] MEDS ORDERED: DiMENhydriNATE IV* 50 MG/ML VIAL ONE (16:46)
[2019-01-08] MEDS: fentaNYL* 50 MCG/ML 2 ML VIAL (100 MCG VIAL) IV PRN ×4 (16:51→17:55)
[2019-01-08] MEDS: Ondansetron INJ* 2 MG/ML VIAL IV PRN (20:18)
[2019-01-08] MEDS ORDERED: Ketorolac INJ* 30 MG/ML 1 ML VIAL IV PUSH ONE (23:38)
[2019-01-08] MEDS ORDERED: HYDROmorphone INJ1* 1 MG/ML SYRINGE IV PRN (23:39)
--- NOTE | 2019-01-09 00:36 | OP ---
OPERATIVE REPORT: DATE OF OPERATION: 01/08/19 DATE OF : 80 SURGEON: Simón Haji MD. GASTROENTEROLOGY NURSE PRACTITIONER: electrical laboratory technician Casey Correia. ANESTHESIA: General. PRE-OP DIAGNOSES: Degenerative disk disease, right L5-S1 herniated nucleus pulposus. POST-OP DIAGNOSES: Degenerative disk disease, right L5-S1 herniated nucleus pulposus. OPERATIVE PROCEDURE: The patient underwent a right L5-S1 lumbar microdiskectomy. ESTIMATED BLOOD LOSS: 10 cc. COMPLICATIONS: None. INDICATION: The patient is a very pleasant 38-year-old gentleman with complaints of back pain radiating to the right lower extremity after trying to get out of bed. The patient had previous lumbar surgeries in the past and had MRI findings consistent with a right L5-S1 large disk herniation. After failing conservative treatment modalities, he was offered the option of surgical intervention. After explaining the expectations, limitations, possible complications of the procedure to the patient and his with the complications including, but not limited to bleeding, infection, risk of injury to adjacent structures, coma, paralysis, , need for additional procedures, anesthesia risk, stroke, blindness, cancer, instability, spinal fluid leak, loss of bladder and bowel control, injury to intraabdominal organs, recurrence of herniated disk, and need for additional procedures, the patient was agreeable to proceed with surgery and informed consent was obtained. The patient understood that his condition may not improve and, in fact, may get worse after surgery and he may need to have additional procedures in the future. He also understood that the operating plan may be modified according to the intraoperative findings and conditions and that the procedure may be aborted or done in more than 1 stage. He also understood that postoperative hematoma, DVT, pulmonary embolism, need for tracheostomy and gastrostomy, prolonged hospitalization, prolonged ICU stay, and prolonged rehabilitation may be possible. The patient and his elected to proceed with surgery and informed consent was obtained. DESCRIPTION OF PROCEDURE: The patient was brought to the operating room and was placed under general anesthesia by the anesthesia team. He was carefully positioned prone on a Hamilton frame on the Panda table and all bony prominences were meticulously padded. His skin was prepped and draped in a standard fashion. After appropriate surgical pause and patient identification, a midline incision was marked on the skin over the previous midline incision. Intraoperative fluoroscopic imaging confirmed the appropriate surgical level. The skin was infiltrated with local anesthetic and incised with #10 surgical blade. The incision was carried down to the dorsal fascia with the use of Bovie cautery. A significant amount of scar tissue as expected from the previous operation was encountered. The dorsal fascia was divided to the right side of the midline with the use of Bovie cautery. The paraspinal musculature was elevated in a subperiosteal fashion with the use of periosteal elevator and Bovie cautery. The right hemilamina of L5, the medial portion of the L5-S1 facet as well as the superior border of S1 were exposed, and under microscopic magnification and after a second intraoperative confirmation of the appropriate level with fluoroscopic imaging, a small laminotomy and very minimal medial facetectomy was performed. After removing the ligamentum flavum, the lateral border of the thecal sac as well as the S1 nerve root were readily identified. After gentle retraction, the nerve root was found to be under tension as 2 rage extruded disk fragments of significant size were identified and gently removed with pituitary rongeurs. Then, attention was brought to performe a diskectomy as significant compression of the nerve root was found to be evident. After incising the annulus fibrosus with the #11 surgical blade, the diskectomy was carried out with pituitary rongeurs and downgoing curettes. At the end of the diskectomy, the thecal sac and the nerve root were found to be free of any pressure phenomenon. After confirmation of meticulous hemostasis and copious irrigation and meticulous inspection and after obtaining intraoperative fluoroscopic image confirming the appropriate surgical level, the self- retaining retractor was removed and the wound was then closed by layers. A 0 intraoperative Vicryl suture was used to approximate the dorsal fascia while the subcutaneous layer was approximated with interrupted 2-0 Vicryl sutures. The skin was covered with Dermabond. At the end of the procedure, all counts were reported to be correct. The patient remained hemodynamically stable throughout the case. He was then turned supine, was extubated, and was transferred to the recovery room in excellent condition. [id number]/[facility] #: [id number] JOSUE
[2019-01-09] MEDS: Cyclobenzaprine TAB* 10 MG PO PRN (04:37)
[2019-01-09] MEDS: Pantoprazole TAB * 40 MG TAB PO SCH (07:34)
[2019-01-09] MEDS: Senna TAB 8.6 mg* TAB PO SCH (07:34)
[2019-01-09] MEDS: Docusate CAP* 100 MG PO SCH (07:34)
--- NOTE | 2019-01-09 08:04 | PN ---
Subjective Date of Service: 01/09/19 Interval History: Mild incisional pain. Walks easily in gil. L shoulder frequent dislocations, patient relocated it himself in recovery room yesterday. He has plans for another shoulder surgery. Family History: Unchanged from Admission Social History: Unchanged from Admission Past Medical History: Unchanged from Admission Objective Active Medications: Acetaminophen (Tylenol Tab*) 650 mg PO Q4H PRN PRN Reason: MILD PAIN or TEMP > 100.4 Cyclobenzaprine HCl (Flexeril Tab*) 10 mg PO TID PRN PRN Reason: SPASMS Last Admin: 01/09/19 04:37 Dose: 10 mg Docusate Sodium (Colace Cap*) 100 mg PO BID [facility] Last Admin: 01/09/19 07:34 Dose: 100 mg Hydromorphone HCl (Dilaudid Inj1s*) 4 mg IV Q3H PRN PRN Reason: PAIN - SEVERE Last Admin: 01/09/19 01:39 Dose: 4 mg Lactated Ringer's (Lactated Ringers 1000 Ml Bag*) 1,000 mls @ 125 mls/hr IV PER RATE [facility] Miscellaneous (Ativan Pyxis Rivas) 1 ea N/A .ATIVAN IV RIVAS PRN PRN Reason: PYXIS RIVAS Ondansetron HCl (Zofran Inj*) 4 mg IV Q4H PRN PRN Reason: NAUSEA/VOMITING Last Admin: 01/08/19 20:18 Dose: 4 mg Oxycodone/Acetaminophen (Percocet 5/325 Tab*) 1 tab PO Q4H PRN PRN Reason: PAIN - MODERATE Last Admin: 01/07/19 14:00 Dose: 1 tab Oxycodone/Acetaminophen (Percocet 5/325 Tab*) 2 tab PO Q4H PRN PRN Reason: PAIN - SEVERE Last Admin: 01/09/19 04:37 Dose: 2 tab Pantoprazole Sodium (Protonix Tab*) 40 mg PO DAILY [facility] Last Admin: 01/09/19 07:34 Dose: 40 mg Polyethylene Glycol/Electrolytes (Miralax*) 17 gm PO DAILY PRN PRN Reason: CONSTIPATION Last Admin: 01/06/19 22:11 Dose: 17 gm Senna (Senokot 8.6 Mg Tab*) 1 tab PO BID [facility] Last Admin: 01/09/19 07:34 Dose: 1 tab Vital Signs - 8 hr 01/09/19 01/09/19 01/09/19 00:12 01:39 02:30 Temperature 97.8 F Pulse Rate 66 Respiratory 18 18 16 Rate Blood Pressure 150/71 (mmHg) O2 Sat by Pulse 94 Oximetry 01/09/19 01/09/19 01/09/19 03:52 04:37 06:55 Temperature 97.5 F Pulse Rate 71 Respiratory 19 18 18 Rate Blood Pressure 147/67 (mmHg) O2 Sat by Pulse 97 Oximetry 01/09/19 07:52 Temperature Pulse Rate Respiratory 18 Rate Blood Pressure (mmHg) O2 Sat by Pulse Oximetry Oxygen Devices in Use Now: None Appearance: Alert, partly up in bed. In good spirits. Looks comfortable. Eyes: No Scleral Icterus Skin: No Rash or Ulcers, No Nodules or Sclerosis, - Neurological: Alert and Oriented x 3, NL Sensation, - - Full strength foot dorsiflexion BL. Result Diagrams: 01/04/19 17:08 01/04/19 17:08 Assess/Plan/Problems-Billing Assessment: Mr. Dhaliwal is a 38 y.o male with a hx of chronic back pain, history of 2 back surgeries who presented to the ER with severe lower back pain radiating to right leg. - Patient Problems (1) Herniated nucleus pulposus Status: Acute Code(s): [id number] - SNOMED Code(s): 11675963 Comment: L5-S1. Microdiscectomy 01/08. Good pain control. Discharge discussed with Dr. Haji (2) Recurrent shoulder dislocation Status: Acute Comment: Patient will fup with his providers. Status and Disposition: inpatient- pending surgery
[2019-01-09 11:36] VITALS: BP 141/73
--- NOTE | 2019-01-09 11:49 | PN ---
Progress Note - Progress Note Date of Service: 01/09/19 SOAP: Subjective: []Patient seen and examined. No events ON. Tolerated procedure well yesterday. Mild incisional pain. Preop Rt LE pain completely resolved. Ambulates, Voids, Tolerates po well. No shoulder pain. Wants to go home. Objective: []VSS, Afebrile AAOx3 LETTY, CN II-XII grossly intact. Motor 5/5 all extremities. sensory grossly intact to light touch FROM yolanda shoulders Assessment: []38 yom POD#1 Rt L5-S1 LMD Plan: []Encourage ambulation. Ok to DC today from NS standpoint. DC instructions were given. No lifting, no bending, No driving. No prolonged sitting. Keep incision dry May shower in two days. Dry area of wound with towel. No baths. Ok for prescription for pain medications in case is needed the next few days. Follow up in office in 7-10 days. Discussed with patient and his . Appreciate IM care. [place] Haji MD
--- NOTE | 2019-01-09 13:02 | PN ---
"Progress Note - Progress Note Date of Service: 01/09/19 Note: Search Terms: bay dhaliwal, 1980 Search Date: 01/09/2019 12:59:54 PM The Drug Utilization Report below displays all of the controlled substance prescriptions, if any, that your patient has filled in the last twelve months. The information displayed on this report is compiled from pharmacy submissions to the Department, and accurately reflects the information as submitted by the pharmacies. This report was requested by: Nomi Kent | Reference #: [id number] Others' Prescriptions Patient Name: Bay Dhaliwal Date: 1980 Address: [address] [place] [address] Sex: Male Rx Written Rx Dispensed Drug Quantity Days Supply Prescriber Name 10/10/2018 10/10/2018 hydrocodone-acetaminophen 5-325 mg tablet 12 3 Rory Lopez L"
--- NOTE | 2019-01-09 13:08 | PN ---
Progress Note - Progress Note Date of Service: 01/09/19 Note: Time spent on discharge including exam of patient, discussion with patient, CM, nurse, Dr. Haji, review of EMR and preparation of discharge documents is 45 minutes.
--- NOTE | 2019-01-09 21:16 | DS ---
CC: Dr. Haji DISCHARGE SUMMARY: DATE OF ADMISSION: DATE OF DISCHARGE: 01/09/19 HISTORY OF PRESENT ILLNESS: This 38-year-old man presented with back pain radiating down the right l eg. The history is detailed on the admission note. The patient has had 2 types of back surgery before as well as 2 left shoulder surgeries. The patient was evaluated with a lumbar spine CT scan and lumbar spine MRI. Dr. Haji saw him i n consultation. The patient had a right L5-S1 herniated nucleus pulposus as well as degenerative dis k disease. On 01/08/19, the patient underwent surgery by Dr. Hjai. He had a micro diskectomy of right L5-S1. The patient did very well postoperatively. He will follow up with Dr. Haji. He was instructed to be on light duty only for the next [address] Haji gave him other inst ructions regarding activity and wound care. DISCHARGE MEDICATIONS: Oxycodone/acetaminophen 5/325 one every 4 hours p.r.n., dispensed 20 with no refills. DISCHARGE CONDITION: Good. DISCHARGE DISPOSITION: Home. [id number]/[facility] #: [id number]
== END 2019-01-09 14:05 | disposition home or self-care (01) | DRG 310 ==
LOC: ED 09:57 → UNDOADMOB 17:46 → MEDTELE 17:46 → MED 18:40 → UNDOADMOB 18:40 → OBSVTOIN 01-05 11:00 → MED 01-05 11:00 → INTOOBSV 01-05 11:00 → UNDODISIN 01-09 14:05
PROVIDERS: ADMIT Internal Medicine; ATTEND Internal Medicine
PROC: 0SB40ZZ Excision of Lumbosacral Disc, Open Approach (ICD-10-PCS; principal; 2019-01-08 12:00)
DX: M51.17 Intervertebral disc disorders with radiculopathy, lumbosacral region (principal); J45.909 Unspecified asthma, uncomplicated; G89.29 Other chronic pain; F41.9 Anxiety disorder, unspecified; M24.419 Recurrent dislocation, unspecified shoulder; Z80.0 Family history of malignant neoplasm of digestive organs; Z72.89 Other problems related to lifestyle; Z87.891 Personal history of nicotine dependence
CPT/HCPCS: 36415; 72132; 72148; 76000; 80048; 85025; 85610; 85730; 86140; 86850; 86900; 86901; 96372; 96374; 96375; 99284; A9270-GY; G0378; J0690; J1100; J1170; J1240; J1885; J2060; J2250; J2270; J2405; J2704; J2710; J3010; J7512; Q9967